=== PATIENT | female | born 1950 | race Caucasian/White ===

== ENCOUNTER → 2017-06-20 | Outpatient (CLI) | payer MEDICARE, BC, OTHER ==
--- NOTE | ~2017-06-20 | MY11 ---
[facility] A Service of [facility] RADIOLOGY TEXT RESULTS PATIENT: ALEXEY VASQUEZ LOCATION: [facility] : 50 UNIT #: [id number] AGE: [address]: Smiley Montana MD SEX: F ORDER DR: [id number] [address] [address] [id number] O MR#: [id number] #: [id number] NAME: ALEXEY VASQUEZ : 1950 SEX: F STUDY DATE/TIME: 06/20/2017 10:33 UNIT: [facility] ROOM: STUDY DESCRIPTION: MY Mammogram Screening Dig Bhavesh Attending Physician: Smiley Montana M.D. Referring Physician: Smiley Montana M.D. Ordering Physician: Smiley Montana M.D. Primary Care Physician: Smiley Montana M.D. MEDICAL IMAGING REPORT This report is preliminary unless electronic signature is present. EXAM Digital screening mammogram 06/20/2017 HISTORY 66-year-old woman. Positive family history, paternal grandmother age 42, sister age 50. Annual screen. COMPARISON Mammograms date to 06/19/2007 with most recent 06/11/2016. FINDINGS Digital imaging of each breast was completed utilizing screening protocol. Review includes FDA-approved CAD device. Breast parenchyma is heterogeneously dense with subareolar duct prominence bilaterally. I see no dominant mass. There are no suspicious microcalcifications and no interval occurring architectural distortion. IMPRESSION Stable benign mammogram. Annual screening recommended. Patient's over the age of 40 are entered into a reminder system with target due date for the next mammogram. BIRADS: 2 Benign findings Dictated by... Christian Persaud M.D. THIS IS AN ELECTRONICALLY VERIFIED REPORT Christian Persaud M.D. at 06/20/2017 2:19 PM JBB/aa [facility] A Service of [facility] RADIOLOGY TEXT RESULTS PATIENT: ALEXEY VASQUEZ LOCATION: [facility] : 50 UNIT #: [id number] AGE: [address]: Smiley Montana MD SEX: F ORDER DR: TD: 06/20/2017 11:52 JOB #: [id number] MEDICAL IMAGING REPORT Page 1 of 1
== END | disposition home or self-care (01) ==
LOC: SMAM 09:55
DX: Z12.31 Encounter for screening mammogram for malignant neoplasm of breast (principal); Z80.3 Family history of malignant neoplasm of breast
CPT/HCPCS: G0202